=== PATIENT | female | born 1965 | race African-American/Black ===

== ENCOUNTER 2017-02-19 23:22 | Emergency (ER) | payer OTHER ==
[2017-02-20] MEDS ORDERED: LIDOCAINE/EPI/TETRACAINE TOPICAL GEL 3 ML. TP
[2017-02-20] MEDS: LIDOCAINE/EPI/TETRACAINE TOPICAL GEL 3 ML. TP (00:03)
[2017-02-20] MEDS: LIDOCAINE WITH 8.4% SOD BICARB 3 ML DISP.SYRIN. IJ (00:04)
[2017-02-20] MEDS: DIPHTH,PERTUSS(ACELL),TET TOX 0.5 ML DISP.SYRIN. VAX IM (00:44)
== END 2017-02-20 01:17 | disposition home or self-care (01) ==
LOC: ER 23:22
DX: S61.216A Laceration without foreign body of right little finger without damage to nail, initial encounter (principal); W26.0XXA Contact with knife, initial encounter; Y93.G1 Activity, food preparation and clean up; Y92.89 Other specified places as the place of occurrence of the external cause; Y99.8 Other external cause status
CPT/HCPCS: 12001; 90471; 90715; 99283-25